=== PATIENT | male | born 1995 | race Caucasian/White ===

== ENCOUNTER 2018-03-25 08:12 | Day surgery (SDC) | payer BC, OTHER ==
[2018-03-25] MEDS ORDERED: Oxymetazoline HCl 0.05% ( 15 ML ) ONE ×2 (09:03→10:31)
[2018-03-25] MEDS ORDERED: Bacitracin Zinc Ointment 30 gm TUBE ONE (10:31)
[2018-03-25] MEDS ORDERED: Lidocaine 1% w/Epinephrine 1:100K 30 ML VIAL ONE (10:31)
[2018-03-25] MEDS ORDERED: Midazolam HCl 2 mg/2 ml Vial ONE (10:36)
[2018-03-25] MEDS ORDERED: Fentanyl 100 MCG/2 ML VIAL ONE ×2 (10:36→11:55)
[2018-03-25] MEDS ORDERED: PROPOFOL 200 MG/20 ML VIAL ONE (11:50)
[2018-03-25] MEDS ORDERED: Dexamethasone 20 MG/5 ML VIAL ONE (11:50)
[2018-03-25] MEDS ORDERED: Ondansetron HCl/PF 4 MG/2 ML Vial ONE (11:50)
[2018-03-25] MEDS ORDERED: Lidocaine 1% PF 5 ML VIAL ONE (11:50)
--- NOTE | 2018-03-25 12:08 | OP ---
PREOPERATIVE DIAGNOSIS: Displaced nasal fracture. POSTOPERATIVE DIAGNOSIS: Displaced nasal fracture. PROCEDURE PERFORMED: Closed reduction nasal septal fracture with internal and external splinting. PROCEDURE IN DETAIL: After consent was obtained, the patient was identified, brought to the operatin g room and placed on the operating table in supine position. Laryngeal mask anesthesia was obtained. The patient was positioned for surgery. The nose was decongested and treated with topical deconges tant with topical Afrin. We then reduced the displaced nasal bones and supported anterior fragments with Gelfoam and the septum was replaced in midline and Soriano splints were suture secured to the caud al septum. We then held the reduced bones in place externally with a [place] type splint and the ramírez ent was awakened and taken to recovery room in a stable condition prior to discharge home.
== END 2018-03-25 13:08 | disposition home or self-care (01) ==
LOC: SDC 08:12
PROVIDERS: ATTEND Specialist
PROC: 0NSBXZZ Reposition Nasal Bone, External Approach (ICD-10-PCS; principal; 2018-03-25)
DX: S02.2XXA Fracture of nasal bones, initial encounter for closed fracture (principal); W21.03XA Struck by baseball, initial encounter
CPT/HCPCS: 96374; J0131; J1100; J2001; J2250; J2405; J2704; J3010